=== PATIENT | male | born 2000 | race Caucasian/White ===

== ENCOUNTER 2018-01-19 12:23 | Emergency (ER) | payer BC ==
[2018-01-19] MEDS ORDERED: LORazepam 1 MG TABLET PO ONE (12:35)
--- NOTE | 2018-01-19 12:45 | ED Physician Documentation ---
General Adult - HISTORIAN Historian: patient - HPI Stated Complaint: CP Chief Complaint: General Adult Onset: hours Timing: still present Severity: moderate Further Comments: yes (Pt is a 17 yo male [facility] resident, who had been an abuser of heroine and methamphetamine who c/o chest pain this am. Pt last use these drugs about 2 weeks ago. Pt has been at [facility] for 2 days, he says. Pt has a hx anxiety and had once been rx'd Xanax, but is no longer taking it.) - ROS CONST: no problems EYES/ENT: none CVS/RESP: chest pain, shortness of breath GI/: nausea (mild) MS/SKIN/LYMPH: none - PAST HX Past History: other (drug abuse, methamphetamine, heroine; hx anxiety.) Allergies/Adverse Reactions: Allergies Allergy/AdvReac Type Severity Reaction Status Date / Time Tetracyclines Allergy Verified 01/19/18 12:33 Home Medications: Ambulatory Orders Medication Instructions Recorded Acetaminophen [Tylenol Extra 1,000 mg PRN PRN 01/19/18 Strength] Cyclobenzaprine HCl [Flexeril] 5 mg TID 01/19/18 Ibuprofen [Advil] 400 mg PRN PRN 01/19/18 Naltrexone HCl [Revia] 25 mg D 01/19/18 - SOCIAL HX Smoking History: cigarettes (1 ppd) Drug Use: heroin, methamphetamines - FAMILY HX Family History: No - VITAL SIGNS Vital Signs: Vital Signs Temp Pulse Resp BP Pulse Ox 98.7 F 89 22 132/71 96 01/19/18 12:29 01/19/18 12:29 01/19/18 12:29 01/19/18 12:29 01/19/18 12:29 - REVIEWED ASSESSMENTS Nursing Assessment Reviewed: Yes Vitals Reviewed: Yes Progress - Progress Progress: Ativan 1 mg po in ER improved Rx Ativan 1 mg po tid prn #15 f/u pcp is sx persist - EKG/XRAY/CT EKG: NSR (HR=97; normal EKG.) ED Results Lab/Radiology - Orders Orders: ED Orders Category Date Time Status LORazepam [Ativan] Med 01/19/18 12:35 Discontinued 1 mg PO NOW ONE EKG WITH COMPARISON Stat Ther 01/19/18 Ordered General Adult Physical Exam - PHYSICAL EXAM GENERAL APPEARANCE: moderate distress EENT: pharynx normal NECK: normal inspection, supple RESPIRATORY: no resp distress, chest non-tender, breath sounds normal CVS: reg rate & rhythm, heart sounds normal ABDOMEN: soft, no organomegaly, normal bowel sounds BACK: normal inspection, no CVA tenderness SKIN: warm/dry, normal color EXTREMITIES: non-tender, normal range of motion, no evidence of injury NEURO: oriented X3, motor nml, sensation nml, other (anxious) Discharge Clincal Impression: Anxiety Referrals: Primary Doctor,No [Primary Care Provider] - Condition: Stable Disposition: 01 HOME, SELF-CARE Decision to Admit: NO Decision Time: 13:45
[2018-01-19 13:04] VITALS: BP 125/75
== END 2018-01-19 13:51 | disposition home or self-care (01) ==
LOC: ED 12:23
DX: F41.9 Anxiety disorder, unspecified (principal); F17.210 Nicotine dependence, cigarettes, uncomplicated; F14.10 Cocaine abuse, uncomplicated; F11.10 Opioid abuse, uncomplicated
CPT/HCPCS: 99282; 99283